=== PATIENT | female | born 1955 | race Caucasian/White ===

== ENCOUNTER 2017-07-27 12:45 | Emergency (ER) | payer OTHER ==
[~2017-07-27 12:45] MED LIST: ASPI81TA82 PO; COZA100T PO; CPAP MASK; DIAZ5TAB PO; ESTR42.5V PV; FOLI1 PO; FURO1TAB62 PO; KCL20 PO; MELO15TA20 PO; MIRA33504 PO; MSIR15 PO; OMEP20TA93 PO; ONDA4TAB7 SL; PERI8.6T PO; PRED2.5T PO; REST15CA PO; SOMA350T PO; VITATAB25 PO
[2017-07-27 12:48] VITALS: BP 168/69; PULSE 94; RESP 24; TEMP 97.7; O2SAT 94
[2017-07-27] MEDS ORDERED: MORPHINE SULFATE 2 MG/ML INJ IV PUSH ONE (13:30)
[2017-07-27] MEDS ORDERED: SODIUM CHLOR 0.9% 1000 ML INJ 1,000 ML IV ONE (13:30)
[2017-07-27] MEDS ORDERED: ONDANSETRON HCL 4 MG/2 ML VIAL IV PUSH ONE (13:30)
[2017-07-27] MEDS ORDERED: MORP-43 PO (13:31)
--- NOTE | 2017-07-27 13:32 | PD ---
HPI Chief Complaint: Medical Clearance Time Seen by Provider: 13:08 Travel History International Travel<30 days: No Contact w/Intl Traveler<30days: No Traveled to known affect area: No History of Present Illness HPI 62-year-old female presents to the emergency department sent by her primary care physician for pain control, hospice consult. 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 She states she has not received any chemotherapy and radiation for at least a couple of years. She states that at this point, she does not want any therapy, but once hospice consult. She wants to have pain relief and go home to . The patient reports headache, 10 out of 10 to the left frontal, behind the left eye that started approximately 2 days ago. She states it started gradually and has worsened. She also reports abdominal pain that is chronic. She states that she does not want any treatment for her cancer. [facility] When asked if she would like me to work her up for her new headache, she declined stating she just wants pain management and hospice consult. Moderate severity. No exacerbating or alleviating factors. Her at bedside states that she is taking morphine at home, but has not been able to keep any food or fluids down for the past 2 days. PFSH Past Medical History Hx Anticoagulant Therapy: Yes (ASA) Arthritis: Yes (RA) Asthma: No Autoimmune Disease: No Anxiety: Yes Cancer: Yes (CERVICAL CANCER, LUNG CANCER) Cardiovascular Problems: Yes (HTN) Chemotherapy: Yes (2016) COPD: No Cerebrovascular Accident: No Diabetes: Yes Patient Takes Glucophage: No Diminished Hearing: No Endocrine: No Gastrointestinal Disorders: Yes GERD: Yes Genitourinary: No Hepatitis: Yes (HX OF HEP B) Hiatal Hernia: Yes Hypertension: Yes Immune Disorder: Yes (RA) Kidney Stones: Yes (X1) Musculoskeletal: Yes (BACK PAIN) Neurologic: Yes (DEGENERATIVE DISEASE) Psychiatric: Yes Reproductive: Yes (UTERINE FIBROIDS) Respiratory: Yes (SLEEP APNEA, CPAP, SOB) Sleep Apnea: Yes (cpap) Thyroid Disease: No ?: Not Menopausal: Yes Past Surgical History AICD: No Gynecologic Surgery: Yes (d and c) Hysterectomy: No Joint Replacement: No Oral Surgery: Yes (FACIAL,WISDOM TEETH) Pacemaker: No Other Surgery: Yes (FACIAL SURGERY) Social History Alcohol Use: No Tobacco Use: No Substance Use: No Allergies-Medications (Allergen,Severity, Reaction): Coded Allergies: No Known Allergies (Unverified , 02/19/17) Reported Meds & Prescriptions Reported Meds & Active Scripts Active Restoril (Temazepam) 15 Mg Cap 2 Cap PO HS PRN Diazepam 5 Mg Tab 5 Mg PO BID PRN Soma (Carisoprodol) 350 Mg Tab 350 Mg PO DAILY PRN Lasix (Furosemide) 20 Mg Tab 20 Mg PO DAILY Reported Morphabond ER 12 HR (Morphine Sulfate) 15 Mg Tab 10 Mg PO Q12H Review of Systems Except as stated in HPI: all other systems reviewed are Neg Physical Exam Narrative GENERAL: Well-nourished, well-developed female patient, afebrile. SKIN: Focused skin assessment warm/dry. HEAD: Normocephalic. Atraumatic. EYES: No scleral icterus. No injection or drainage. NECK: Supple, trachea midline. No JVD or lymphadenopathy. CARDIOVASCULAR: Regular rate and rhythm without murmurs, gallops, or rubs. RESPIRATORY: Breath sounds equal bilaterally. No accessory muscle use. Lungs sounds are clear to auscultation. GASTROINTESTINAL: Abdomen soft, non-tender, nondistended. MUSCULOSKELETAL: No cyanosis, or edema. BACK: Nontender without obvious deformity. No CVA tenderness. Data Data Last Documented VS Vital Signs Date Time Temp Pulse Resp B/P (MAP) Pulse Ox O2 Delivery O2 Flow Rate FiO2 07/27/17 12:48 97.7 94 24 168/69 (102) 94 Room Air Orders Orders Morphine Inj (Morphine Inj) (07/27/17 13:30) Ondansetron Inj (Zofran Inj) (07/27/17 13:30) Sodium Chlor 0.9% 1000 Ml Inj (Ns 1000 M (07/27/17 13:30) Hospice Consult (07/27/17 13:20) MDM Medical Decision Making Medical Screen Exam Complete: Yes Emergency Medical Condition: Yes Medical Record Reviewed: Yes Differential Diagnosis Chronic pain versus endometrial adenocarcinoma versus metastasis versus medical clearance Narrative Course 62-year-old female presents to the emergency department for evaluation of pain, hospice consult. IV access established. Patient is given morphine 4 mg IV, Zofran 4 mg IV, normal saline 1 L IV bolus. Hospice consult is placed. Case management was notified. The hospice nurse has evaluated the patient she will be transferred to the hospice care center. Diagnosis Primary Impression: Adenocarcinoma of endometrium, stage 4 Patient Instructions: General Instructions, Narcotic given in the ED Additional Instructions: Return to the emergency department for any acute, worsening of symptoms. Med/Other Pt SpecificInfo: No Change to Meds Disposition: 51 HOSPICE/MED FACILITY Condition: Stable Ketty Rey Jul 27, 2017 13:32
== END 2017-07-27 17:31 | disposition hospice, inpatient (51) ==
LOC: NEPE 12:45 → NEDAMB 17:31
DX: C54.1 Malignant neoplasm of endometrium (principal); R51 Headache; R10.9 Unspecified abdominal pain; G89.29 Other chronic pain; M06.9 Rheumatoid arthritis, unspecified; E11.9 Type 2 diabetes mellitus without complications; K21.9 Gastro-esophageal reflux disease without esophagitis; I10 Essential (primary) hypertension; F41.9 Anxiety disorder, unspecified
CPT/HCPCS: 96374; 96375; 99284; J2270; J2405; J7030